=== PATIENT | female | born 1995 | race Caucasian/White ===

== ENCOUNTER 2019-07-09 14:03 | Emergency (ER) | payer OTHER ==
--- OUTSIDE RECORDS SUMMARY | 2019-07-09 14:18 | XMS REPORT | Continuity of Care Document ---
:1995 External Reference #:[id number] Author Name Anmol Jo M.D. Address [address] [address] Care Team Providers Name Role Phone 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 Service Problems Description No Information Available Social History Type Date Description Comments Sex Unknown Tobacco Use Start: Unknown Never Smoked Cigarettes Tobacco Use Start: Unknown Never Smoked Cigars Tobacco Use Start: Unknown Never Smoked A Pipe Smokeless Tobacco Never Used Smokeless Tobacco ETOH Use Currently rarely consumes alcohol Tobacco Use Start: Unknown Patient has never smoked Smoking Status Reviewed: 07/01/19 Patient has never smoked Allergies, Adverse Reactions, Alerts Description No Known Drug Allergies Medications Active Medications SIG Qnty Indications Ordering Provider Date Baclofen as Needed Unknown 10mg Tablets Sprintec 28 daily Unknown 0.25-35mg-mcg Tablets Iron daily Unknown Immunizations Description No Information Available Vital Signs Date Vital Result Comment 07/02/2019 3:34pm Weight 124.00 lb Weight 56.246 kg Height 66 inches 5'6" Height in cm's 167.6 cm BMI (Body Mass Index) 20.0 kg/m2 06/19/2019 9:11am Weight 124.00 lb Weight 56.246 kg Height 66 inches 5'6" Height in cm's 167.6 cm BMI (Body Mass Index) 20.0 kg/m2 Results Description No Information Available Procedures Description No Information Available Medical Devices Description No Information Available Encounters Type Date Location Provider Dx Diagnosis Office Visit 06/19/2019 Wilsey,David Gustafson G50.1 Atypical facial 9:15a 10/03/07 Evan Jo pain J32.9 Chronic sinusitis, unspecified Assessments Date Code Description Provider 07/02/2019 G50.1 Atypical facial pain Anmol Jo M.D. 07/02/2019 M26.603 Bilateral temporomandibular joint Anmol Jo M.D. disorder, unspecified 07/02/2019 G44.52 New daily persistent headache (NDPH) Anmol Jo M.D. 06/19/2019 G50.1 Atypical facial pain Anmol Jo M.D. 06/19/2019 J32.9 Chronic sinusitis, unspecified Anmol Jo M.D. Plan of Treatment 07/02/2019 - Anmol Jo M.D.G50.1 Atypical facial painComments:The patient's sinus CT was normal with no evidence that sinusitis is a cause of her symptoms. I reviewed that with her today I think this is either her TMJ or daily persistent headache. She needs to speak to her PCP about where to go from here.M26.603 Bilateral temporomandibular joint disorder, [id number] New daily persistent headache (NDPH) Functional Status Description No Information Available Mental Status Description No Information Available Referrals Description No Information Available
--- OUTSIDE RECORDS SUMMARY | 2019-07-09 14:18 | XMS REPORT | Continuity of Care Document ---
:1995 External Reference #:[id number] Author Name Anmol Jo M.D. 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 Service Problems Description No Information Available Social History Type Date Description Comments Sex Unknown Tobacco Use Start: Unknown Never Smoked Cigarettes Tobacco Use Start: Unknown Never Smoked Cigars Tobacco Use Start: Unknown Never Smoked A Pipe Smokeless Tobacco Never Used Smokeless Tobacco ETOH Use Currently rarely consumes alcohol Tobacco Use Start: Unknown Patient has never smoked Smoking Status Reviewed: 06/19/19 Patient has never smoked Allergies, Adverse Reactions, Alerts Description No Known Drug Allergies Medications Active Medications SIG Qnty Indications Ordering Provider Date Baclofen 10mg daily Unknown Tablets Sprintec 28 daily Unknown 0.25-35mg-mcg Tablets Iron daily Unknown Immunizations Description No Information Available Vital Signs Date Vital Result Comment 06/19/2019 9:11am Weight 124.00 lb Weight 56.246 kg Height 66 inches 5'6" Height in cm's 167.6 cm BMI (Body Mass Index) 20.0 kg/m2 Results Description No Information Available Procedures Description No Information Available Medical Devices Description No Information Available Encounters Type Date Location Provider Dx Diagnosis Office Visit 06/19/2019 David Reeder G50.1 Atypical facial 9:15a 10/03/07 Evan Jo pain J32.9 Chronic sinusitis, unspecified Assessments Date Code Description Provider 06/19/2019 G50.1 Atypical facial pain Anmol Jo M.D. 06/19/2019 J32.9 Chronic sinusitis, unspecified Anmol Jo M.D. Plan of Treatment No Information Available Functional Status Description No Information Available Mental Status Description No Information Available Referrals Description No Information Available
[2019-07-09 16:28] LABS: ABS Lymphocytes 2.4 10^3/ul (1.0-4.8); ABS Monocytes 0.4 10^3/ul (0-0.8); ABS Neutrophils 4.1 10^3/ul (1.5-7.7); Eosinophil % 0.7 %; Hematocrit 40 % (35-47); Hemoglobin 13.9 g/dL (12.0-16.0); Lymphocyte % 33.9 %; Mean Corpuscular HGB Conc 35 g/dL (31-36); Mean Corpuscular Hemoglobin 32 pg (27-31); Mean Corpuscular Volume 91 fL (80-97); Mean Platelet Volume 7.3 fL (7.4-10.4); Nucleated Red Blood Cells % 0.1; Platelet Count 223 10^3/uL (150-450); Red Blood Count 4.42 10^6 /uL (3.70-4.87); Red Cell Distribution Width 12 % (10-15)
--- NOTE | 2019-07-09 17:01 | ED ---
Abdominal Pain/Female - HPI Summary HPI Summary: The patient is a 23 y/o F presenting to [facility] with a chief complaint of right- sided abdominal pain for the last three days. She reports that when the pain began, she was also nauseous, which persisted into the next day. While she is not nauseous today, she is now experiencing a decreased appetite. She denies fever or any vaginal bleeding or discharge. Currently, her symptoms are rated 6/ 10 in severity. LNMP: two weeks ago. test at [facility] was negative. PMHx: HLD, eating disorder. Nonsmoker, rare EtOH, no substance use. Medications reviewed. Allergies noted. - History of Current Complaint Chief Complaint: EDAbdPain Stated Complaint: ABD PAIN PER PT Time Seen by Provider: 07/09/19 16:04 Hx Obtained From: Patient Onset/Duration: Sudden Onset, Lasting Days - three, Still Present Timing: Days Severity Initially: Moderate Severity Currently: Moderate Pain Intensity: 6 Pain Scale Used: 0-10 Numeric Location: Other - right-sided Radiates: No Aggravating Factor(s): Nothing Alleviating Factor(s): Nothing Associated Signs and Symptoms: Positive: Decreased Appetite, Nausea - resolved. Negative: Fever, Vaginal Bleeding, Vaginal Discharge Allergies/Adverse Reactions: Allergies Allergy/AdvReac Type Severity Reaction Status Date / Time No Known Allergies Allergy Verified 07/09/19 16:14 Home Medications: Home Medications Baclofen TAB* [Lioresal TAB*] 10 mg PO DAILY 07/09/19 [History Confirmed ] Norgestimate-Eth Estradiol(NF) [Ortho Tri-Cyclen (NF)] 1 tab PO DAILY 07/09/19 [ History Confirmed 07/09/19] Spironolactone TAB* [Aldactone TAB*] 25 mg PO DAILY 07/09/19 [History Confirmed 07/09/19] PMH/Surg Hx/FS Hx/Imm Hx Endocrine/Hematology History: Denies: Hx Diabetes Cardiovascular History: Reports: Hx Hypercholesterolemia Denies: Hx Hypertension Psychiatric History: Reports: Hx Eating Disorder - Surgical History Surgical History: Yes Surgery Procedure, Year, and Place: wisdom teeth Infectious Disease History: No Infectious Disease History: Denies: Traveled Outside the [place] in Last 30 Days - Family History Known Family History: Positive: Other - hyperlipidemia Negative: Hypertension - Social History Alcohol Use: Rare Hx Substance Use: No Substance Use Type: Reports: None Hx Tobacco Use: No Smoking Status (MU): Never Smoked Tobacco Review of Systems Negative: Fever Positive: Abdominal Pain - right-sided, Nausea - resolved, Other - decreased appetite Negative: discharge, other - vaginal bleeding All Other Systems Reviewed And Are Negative: Yes Physical Exam - Summary Physical Exam Summary: VITAL SIGNS: Reviewed. GENERAL: Patient is a well-developed and nourished female who is lying comfortable in the stretcher. Patient is not in any acute respiratory distress. HEAD AND FACE: Normocephalic and atraumatic. EYES: PERRLA, EOMI x 2, No injected conjunctiva. EARS: Hearing grossly intact. Ear canals and tympanic membranes are WNL. MOUTH: Oropharynx within normal limits. NECK: Supple, trachea is midline, no adenopathy, no JVD. CHEST: Symmetric, no tenderness at palpation. LUNGS: Clear to auscultation bilaterally. No wheezing or crackles. CVS: RRR, S1 and S2 present, no murmurs or gallops appreciated. ABDOMEN: Soft, non-tender. No signs of distention. Positive bowel sounds. No rebound, no guarding, and no masses palpated. No abdominal bruit or pulsations. EXTREMITIES: FROM in all major joints, no edema, no cyanosis or clubbing. NEURO: Alert and oriented x 3. No acute neurological deficits. Speech is normal. SKIN: Dry and warm. Triage Information Reviewed: Yes Vital Signs On Initial Exam: Initial Vitals Temp Pulse Resp BP Pulse Ox 98.5 F 78 16 123/91 100 07/09/19 14:05 07/09/19 14:05 07/09/19 14:05 07/09/19 14:05 07/09/19 14:05 Vital Signs Reviewed: Yes Procedures - Sedation Patient Received Moderate/Deep Sedation with Procedure: No Diagnostics - Vital Signs Vital Signs Temp Pulse Resp BP Pulse Ox 07/09/19 16:16 74 111/72 97 07/09/19 16:15 75 98 07/09/19 14:05 98.5 F 78 16 123/91 100 - Laboratory Lab Results: Lab Results 07/09/19 Range/Units 16: WBC 7.0 (3.5-10.8) 10^3/uL RBC 4.42 (3.70-4.87) 10^6 /uL Hgb 13.9 (12.0-16.0) g/dL Hct 40 (35-47) % MCV 91 (80-97) fL MCH 32 H (27-31) pg MCHC 35 (31-36) g/dL RDW 12 (10-15) % Plt Count 223 (150-450) 10^3/uL MPV 7.3 L (7.4-10.4) fL Neut % (Auto) 58.7 % Lymph % (Auto) 33.9 % [place] % (Auto) 6.1 % Eos % (Auto) 0.7 % Baso % (Auto) 0.6 % Absolute Neuts (auto) 4.1 (1.5-7.7) 10^3/ul Absolute Lymphs (auto) 2.4 (1.0-4.8) 10^3/ul Absolute Monos (auto) 0.4 (0-0.8) 10^3/ul Absolute Eos (auto) 0.0 (0-0.6) 10^3/ul Absolute Basos (auto) 0.0 (0-0.2) 10^3/ul Absolute Nucleated RBC 0.0 10^3/ul Nucleated RBC % 0.1 Result Diagrams: 07/09/19 16:19 07/09/19 16:19 Lab Statement: Any lab studies that have been ordered have been reviewed, and results considered in the medical decision making process. - Ultrasound Transvaginal Ultrasound Ultrasound Interpretation Completed By: Radiologist Summary of Ultrasound Findings: Impression: 1. The right ovary is obscured by overlying bowel gas. There is trace free fluid in the right adnexa. 2. A 1.6 cm complicated cyst within the left ovary may be financial foundations representative of hemorrhagic ovarian cyst. This could be reimaged in 2-3 months to document resolution. Doppler signal is identified in the left ovary. ED physician has reviewed this report. Appendix Ultrasound Ultrasound Interpretation Completed By: Radiologist Summary of Ultrasound Findings: Impression: The appendix and periappendiceal soft tissues are obscured by overlying bowel gas. ED physician has reviewed this report. Re-Evaluation - Re-Evaluation First Eval Re-Evaluation Time: 19:00 Change: Unchanged Comment: Patient declined pelvic exam and pelvic CT. We discussed plan for discharge. Abdominal Pain Fem Course/Dx - Course Course Of Treatment: Patient is a 23 y/o F with chief complaint of RLQ pain onset three days ago accompanied by nausea and decreased appetite but without any fever, vaginal bleeding, or vaginal discharge. test at [facility] was negative. Blood work without any significant abnormality, but also count is normal, and CRP is also normal. The patients pain is in the lower abdomen intermittently since last Tuesday. Occasionally the pain is more in the right and left. Transvaginal u/s IMPRESSION: 1. THE RIGHT OVARY IS OBSCURED BY OVERLYING BOWEL GAS. THERE IS TRACE FREE FLUID IN THE RIGHT ADNEXA. 2. A 1.6 CM COMPLICATED CYST WITHIN THE LEFT OVARY MAY BE POWER WOOD SAWYER OF HEMORRHAGIC OVARIAN CYST. THIS COULD BE REIMAGED IN 2-3 MONTHS TO DOCUMENT RESOLUTION. DOPPLER SIGNAL IS IDENTIFIED IN THE LEFT OVARY. Appendix u/s IMPRESSION: The appendix and periappendiceal soft tissues are obscured by overlying bowel gas. Multiple abdominal exams the patient does have any tenderness in the right lower quadrant. Since the patients blood work shows no increase in WBCs and CRP is normal, I discussed the benefits and risks with an abdominal pelvic CT and at this time the patient declines. I also offered the patient a pelvic exam ; she declined since the patient does not have any vaginal discharge or bleeding. I discussed all the findings and test results with the patient. Patient was instructed to return to the emergency room immediately if any of the symptoms return or worsen. They were explained the possibility of an early abdominal pathology which was not detected at this time despite the physical exam and testing. They understand and agree. Abdominal exam before discharge: Soft, NT. No signs of distention. BS present. No rebound, no guarding, and no masses palpated. Patient is alert and oriented and hemodynamically stable. Patient is to follow up with primary care physician in the next 2 to 3 days. Patient agrees and understands. - Diagnoses Differential Diagnosis: Positive: Appendicitis, Bowel Obstruction, Constipation , Diverticulitis, Ovarian Cyst, Urinary Tract Infection Provider Diagnoses: Lower abdominal pain Discharge ED - Sign-Out/Discharge Documenting (check all that apply): Patient Departure - Patient will be discharged home. - Discharge Plan Condition: Stable Disposition: HOME Patient Education Materials: Abdominal Pain (ED) Referrals: [facility] [Primary Care Provider] - 3 Days Additional Instructions: Follow up with your primary care provider in 2-3 days. Return to the emergency department for any new or worsening symptoms. - Billing Disposition and Condition Condition: STABLE Disposition: Home - Attestation Statements Document Initiated by Thalia: Yes Documenting Scribe: Haritha Chu Provider For Whom Thalia is Documenting (Include Credential): Dr. Jesus Malone MD Scribe Attestation: Haritha Radford, scribed for Dr. Jesus Malone MD on 07/10/19 at 1849. Scribe Documentation Reviewed: Yes Provider Attestation: The documentation as recorded by the Haritha felipe accurately reflects the service I personally performed and the decisions made by me, Dr. Jesus Malone MD Status of Scribe Document: Viewed
[2019-07-09 17:14] LABS: Albumin 4.3 g/dL (3.2-5.2); Albumin/Globulin Ratio 1.7 (1-3); BUN/Creatinine Ratio 13.1 (8-20); C Reactive Protein 1.77 mg/L (<8.01); Calcium 8.8 mg/dL (8.6-10.3); EGFR African American 100.8 (>60); EGFR Non-African American 83.3 (>60); Globulin 2.6 g/dL (2-4); Potassium 3.5 mmol/L (3.5-5.0); Total Bilirubin 0.7 mg/dL (0.2-1.0); Total Protein 6.9 g/dL (6.4-8.9)
[2019-07-09 19:17] VITALS: BP 110/76
== END 2019-07-09 19:15 | disposition home or self-care (01) ==
LOC: ED 14:03
DX: R10.30 Lower abdominal pain, unspecified (principal); N83.202 Unspecified ovarian cyst, left side; E78.00 Pure hypercholesterolemia, unspecified; Z79.899 Other long term (current) drug therapy
CPT/HCPCS: 36415; 76705; 76830; 80053; 83605; 83690; 85025; 86140; 99283